=== PATIENT | male | born 1965 | race Hispanic/Latino ===

== ENCOUNTER 2016-09-05 13:26 | Day surgery (SDC) | payer OTHER ==
[~2016-09-05] VITALS: Ht 162.6 cm; Wt 68.9 kg
[~2016-09-05 13:26] MED LIST: CLIN-78 PO; Clindamycin 900 mg/50 mL D5W IV ONE; LISI-571 PO; LOSA25TA21 PO; METF1000 PO
[2016-09-05] MEDS ORDERED: Ketamine 10 mg/mL 20 mL Inj ONE (13:27)
[2016-09-05] MEDS ORDERED: Propofol 10,000 mCg/mL 20 mL Inj ONE (13:27)
[2016-09-05] MEDS ORDERED: fentaNYL-PF 50 mCg/mL 2 mL Inj ONE (13:27)
[2016-09-05] MEDS: Lactated Ringer's 1,000 ML IV SCH ×2 (14:07→15:00)
[2016-09-05 14:13] VITALS: BP 112/76; PULSE 71; RESP 18; O2SAT 98
[2016-09-05] MEDS ORDERED: Clindamycin 900 mg/50 mL D5W Premix IV ONE (14:13)
--- NOTE | 2016-09-05 14:31 | PCM.HPANE ---
Patient Data Date of Service: Sep 05, 2016 Surgeon Admitting Provider: Attending Provider:Rusty Bone MD Primary Care Physician:Zen Lorenzana MD Other Provider:Bran Andrade Anesthesia Reason for Visit Right Hand Foregin Body Ht/WT & BMI Height (Feet): 5 Height (Inches): 4 Weight (Kilograms): 68.9 Body Mass Index 25.00 Allergies Coded Allergies: No Known Allergies (Unverified , 09/05/16) Past Anesthesia History Anesthesia History: Denies:: Abnormal Airway, Anesthesia Reactions, Fam Malignant Hypertherm, Malignant Hyperthermia Diabetes History Hx Diabetes?: Yes Type of Diabetes: Type II Glycemic Control: Oral Medication MRSA MRSA: No Medications Hypertension Medication: No Home Meds Incl Beta Campbell: No Reported Medications Losartan Potassium 25 Mg [id number] Mg PO 09/04/16 Lisinopril 5 Mg Tablet5 Mg PO DAILY #30 TABLET Ref 0 09/04/16 Clindamycin 300 Mg [id number] Mg PO BID Ref 0 08/14/16 Metformin (Glucophage)1,000 Mg Tablet1,000 Mg PO BID Ref 0 08/14/16 History History of ENT Problems?: No HEENT History: Denies:: Abnormal Airway Cataracts Dysphagia Glaucoma Hearing Problem Sinus Problem TMJ Denture Type: None Teeth Condition: Within Normal Limits Other HEENT Pertinent History: HX OF [place] 2010 Hx of Heart Problems?: Yes Cardiovascular History: Positive for:: Hypertension Denies:: AICD Abdominal Aortic Aneurism Atrial Fibrillation Cardiac Surgery Chest Pain Congestive Heart Failure Coronary Artery Disease Edema Heart Murmur Irregular Heartbeat Pacemaker Rheumatic Fever Thrombophlebitis Valvular Heart Disease Hx of Respiratory Problem?: No Respiratory History: Denies:: Asthma COPD Chest Surgery Cough Dyspnea Emphysema Hemoptysis Pneumonia Pulmonary Embolism Tuberculosis Use of C-PAP Machine Hx Neurologic Problems?: Yes Neurological History: Positive for:: CVA Denies:: Alzheimer's Disease Dementia Dizziness Headaches Multiple Sclerosis Parkinson's Disease Seizures TIA Hx of GI Problems?: No Hx of Problems?: No Genitourinary History: Denies:: HX of Hemodialysis Kidney Stones HX of Peritoneal Dialysis: No Male Hx: Denies:: Prostate Problems Scrotal Mass Testicular Surgery Skin History: Denies:: History Skin Disorders? Pressure Ulcers Hx Musculoskeletal Problems?: No Musculoskeletal History: Positive for:: Musculoskeletal Trauma (HX B/L WRIST TENDONITIS FROM OVERUSE-TX W/ NSAID;'S, PT) Hx of Psycho/Social Problems?: No Hx Surgeries?: No Hx Any Other Health Problems?: Yes Other History: Denies:: Cancer Endocrine Disease Hospitalization Thyroid Disease History Blood Transfusions: Denies:: Accept Blood Products? Blood Transfusions Hx Diabetes: Yes Hx Alcohol Use: NoHx Substance Use: No Stop/Bang Treated for Sleep Apnea?: No Do You Have a CPAP Machine?: No S-Snoring: Do You Snore Loudly: Yes T-Tired: feel tired, fatigued: No O-Obsered: Observed not breath: No P-Blood Pressure: treated: Yes B- Body Mass Index > 35 kg/m2: No A- Age over 50: Yes N- Neck Large Circumference: No G- Gender Male: Yes TIFFANIE Total Score: 4 TIFFANIE Risk Assessment: Low Risk, <3 Yes Risk Assessment Category Category 1A: Patient has history of documented sleep apnea, and HAS NOT received any narcotic, sedative or anesthesia administration during this stay. Category 1B: Patient has history of documented sleep apnea, and HAS received any narcotic , sedative or anesthesia administration during this stay Category 2: Patient has SUSPECTED Obstructive Sleep Apnea, and HAS received any narcotic , sedative or anesthesia administration during this stay. Category 3: Patient has SUSPECTED Obstructive Sleep Apnea and HAS NOT received narcotic, sedative or anesthesia administration during this stay. Category 4: Outpatient in Procedural Areas with known sleep apnea or who screen positive for High Risk via the STOP/BANG questionnaire. Exam Exam Vital Signs Vital Signs Date Time Temp Pulse Resp B/P Pulse Ox O2 Delivery O2 Flow Rate FiO2 09/05/16 14:13 36.2 71 18 112/76 98 Room Air General Appearance: Alert, Oriented X3, Cooperative, No Acute Distress HEENT/AIRWAY: MP 2 Lungs: Clear to Auscultation, Normal Air Movement Heart: Exam Unremarkable, Regular Rate/Rhythm, No Murmurs/Rubs/Gallops Meds/Labs/Diagnostics Admission Meds Current Medications Lactated Ringer's (Lr) 1,000 ml @ 120 mls/hr [id number] IV Last administered on t 14:07; Start 09/05/16 at 05:00; Stop 09/05/16 at 13:19; Status DC Plan Impression Patient chart reviewed, patient interviewed and anesthestic plan with risks, benefits, and alternatives discussed, and informed consent obtained. NPO per Anesth. Guidelines: Yes ASA Physical Status: ASA2 Mod Systemic Disease Anesthetic Plan: MAC Bene/Risks/Altern/Consents: Yes HP Complete Prior to Induction: Yes Corby Dietz DO Sep 05, 2016 14:31
[2016-09-05] MEDS ORDERED: Lactated Ringer's 1,000 ML IV SCH (15:22)
[2016-09-05] MEDS ORDERED: Lactated Ringer's 500 ML IV PRN (15:22)
[2016-09-05] MEDS ORDERED: Bupivacaine-MPF 0.25% 30 mL Inj INFILTRATE ONE (15:23)
[2016-09-05] MEDS ORDERED: Lidocaine 1%-Epi 1:100,000 20 mL Inj INJ ONE (15:24)
[2016-09-05] MEDS ORDERED: Ondansetron 2 mg/mL 2 mL Inj IVPUSH PRN (15:25)
[2016-09-05] MEDS ORDERED: Phenylephrine 10,000 mCg/mL Inj IVPUSH PRN (15:25)
[2016-09-05] MEDS ORDERED: MetoCLOpramide 5 mg/mL 2 mL Inj IVPUSH PRN (15:25)
[2016-09-05] MEDS ORDERED: Dexamethasone 4 mg/mL Inj IVPUSH PRN (15:25)
[2016-09-05] MEDS ORDERED: EPHEDrine Sulfate 50 mg/mL Inj IVPUSH PRN (15:25)
[2016-09-05] MEDS ORDERED: HYDROmorphone 1 mg/mL Inj IVPUSH PRN (15:25)
[2016-09-05] MEDS ORDERED: fentaNYL-PF 50 mCg/mL 2 mL Inj IVPUSH PRN (15:25)
[2016-09-05] MEDS ORDERED: HYDROcodone-APAP 5-325 mg Tablet PO PRN (15:35)
[2016-09-05] MEDS ORDERED: Bacitracin Ointment Packet TOPICAL ONE (15:36)
[2016-09-05 15:41] VITALS: BP 94/57; PULSE 66; RESP 16; O2SAT 98
[2016-09-05 15:43] VITALS: BP 102/65; PULSE 63; RESP 16; O2SAT 95
--- NOTE | 2016-09-06 13:14 | OP ---
[address] [address] OPERATIVE REPORT PATIENT: PATRICE MONTEJO : 1965 MR#: [id number] ADMIT: 09/05/2016 JOB ID: [id number] DATE OF SURGERY: 09/06/2016 PREOPERATIVE DIAGNOSIS(ES): Right middle finger retained foreign body. POSTOPERATIVE DIAGNOSIS(ES): Right middle finger retained foreign body. PROCEDURE: 1. Exploration of right middle finger penetrating trauma. 2. Removal of subcutaneous retained foreign body. SURGEON: Rusty Bone MD LEADITE MAN: None. ANESTHESIA: MAC with local. COMPLICATIONS: None apparent. SPECIMEN: None. INDICATIONS FOR PROCEDURE: This is a 51-year-old male patient who sustained a puncture wound to the right hand on the dorsum of the middle finger metacarpal phalangeal joint. X-rays demonstrated a retained foreign body. Attempted retrieval in Urgent Care was not successful. I saw the patient one day after the Urgent Care examination. At that point the patient elected to proceed with conservative management and not operative management. The patient contacted me a week later reporting that the right middle finger continues to be painful and swollen and elected to proceed with exploration and removal of the foreign body. At this point such a procedure is indicated. PROCEDURES AND FINDINGS: The patient was identified in the preoperative area. Surgical site was marked. The patient was then taken back to the operating room and placed supine on the operating table. Appropriate time-outs were taken. General and MAC was induced smoothly. The patient was then prepped and draped in the usual sterile manner. Local anesthesia was then infiltrated to the dorsum of the left hand near the level of the carpal metacarpal joint in a regional nerve block. This was done with lidocaine and Marcaine. I then examine patient's right hand. On the dorsum of the right hand, over the middle finger metacarpophalangeal joint, there is an area of slight induration. There is a longitudinal puncture wound/incision from his previous exploration at Urgent Care. At this point fluoroscopy was used to examine the hand. The foreign body was found to be ulnar to the previous incision by approximately 1 cm. I first opened up patient's previous puncture wound. This was done with a #15 blade. I extended the puncture wound slightly distally to make the incision approximately 1 cm. At this point, I deepened the incision bluntly, down toward the area of the foreign body, with a mosquito. I encountered a small seroma. I attempted to remove the foreign body through this incision but was not successful as I could not easily grasp the foreign body. At this point, a transverse incision was then made connecting to the distal end of the longitudinal incision. This was done along a naturally existing crease. The incision was made with a 15 and deepened down to the underlying subcutaneous tissue. The chevron shaped flap was then elevated. This allowed me to identify the foreign body, which was a black piece of metal approximately 5 mm x 3 mm. This was removed. The area was irrigated with saline solution. The incision was reapproximated with two 4-0 nylon horizontal mattress sutures. The patient tolerated the procedure well. Needle count, sponge count, and instrument counts were correct at the end of the procedure. The patient was transported to recovery in stable condition.
== END 2016-09-05 23:59 | disposition home or self-care (01) ==
LOC: SAS 13:26
PROVIDERS: ATTEND Plastic Surgery
DX: S61.242A Puncture wound with foreign body of right middle finger without damage to nail, initial encounter (principal); W22.8XXA Striking against or struck by other objects, initial encounter; Y93.H3 Activity, building and construction; Y92.89 Other specified places as the place of occurrence of the external cause; Y99.0 Civilian activity done for income or pay
CPT/HCPCS: 10121; 20103; J2250; J3010; J7120